=== PATIENT | female | born 1970 | race Caucasian/White ===

== ENCOUNTER 2016-07-24 12:55 | Inpatient (IN) | payer MEDICAID ==
[~2016-07-24] VITALS: Ht 167.6 cm; Wt 81.6 kg
[~2016-07-24 12:55] MED LIST: PRILOSEC40 MG PO
[2016-07-24 13:10] VITALS: BP 124/84
--- NOTE | 2016-07-24 15:44 | NUR ---
PATIENT AMBULATED TO BED 7.
--- NOTE | 2016-07-24 15:47 | NUR ---
PATIENT PRESENTS TO ED WITH DUE TO C/O MIDSTERNAL CHEST PAIN, UNPROVOKED, NON RADIATING---SORENESS TYPE PAIN INTERMITTENT X 1 WEEK HX--VALVULAR REGURGITATION, GERD RX---OMEPRAZOLE .PT VERBALIZED YESTERDAY I FELT LIKE I WAS GOING TO PASS OUT AND WHEN I GOT BACK TO WORK I FEEL A CHILL AND I FEEL MY HEAD FEEL NUMB, SKIN IS PINK/WARM/DRY; AAOX4 WITH EVEN AND STEADY GAIT; LUNGS CLEAR BL; HR EVEN AND REGULAR; PT DENIES ANY FEVER OR COUGH AT THIS TIME; PATIENT STATES PAIN OF 0/10 AT THIS TIME; BUT PT SAYS WHEN SHE HAS PAIN 4/10,PATIENT POSITIONED FOR COMFORT; HOB ELEVATED; BEDRAILS UP X2; BED DOWN. ER MD MADE AWARE OF PT STATUS.
[2016-07-24] MEDS ORDERED: ASPIRIN 81 MG TAB.CHEW PO ONE (15:50)
--- NOTE | 2016-07-24 15:52 | NUR ---
DR. ISRAEL AT BEDSIDE AT THIS TIME
--- NOTE | 2016-07-24 17:30 | NUR ---
Patient appears to be resting comfortably in bed. Vital Signs within normal limits. Respirations even and unlabored. NO ACUTE DISTRESS NOTED AT THIS TIME; WILL CONTINUE TO MONITOR.
--- NOTE | 2016-07-24 18:44 | NUR ---
REPORT GIVEN TO REDD DAVALOS AT THIS TIME; AWAITING ADMIT ORDERS; PT DENIES ANY ACUTE DISTRESS; WILL CONTINUE TO MONITOR.
[2016-07-24] MEDS ORDERED: HYDROcodone/APAP 5/325 MG 1 TAB TAB PO PRN (18:55)
[2016-07-24] MEDS ORDERED: NACL 0.9% 1,000 ML IV ONE (18:55)
[2016-07-24] MEDS ORDERED: MORPHINE SULFATE 2 MG/ML SYR IVP PRN (18:55)
[2016-07-24] MEDS ORDERED: ONDANSETRON 4 MG/2 ML VIAL IVP PRN (18:55)
[2016-07-24] MEDS ORDERED: DOCUSATE SODIUM 100 MG GELCAP PO PRN (18:55)
[2016-07-24] MEDS ORDERED: ACETAMINOPHEN 325 MG TAB PO PRN (18:55)
[2016-07-24] MEDS: METOPROLOL 25 MG TAB PO SCH ×2 (19:05→21:00)
--- NOTE | 2016-07-24 19:14 | NUR ---
Patient will be admitted to care of . Admited to TELEMETRY. Will go to room 119A. Belongings list completed. Report to REDD DAVALOS.
--- NOTE | 2016-07-24 19:15 | NUR ---
ADMITTED A PATIENT FROM ER, TRANSPORTED VIA GURNEY, ACCOMPANIED BY ER NURSE AND FAMILY MEMBERS. PT IS AAOX4, DENIES PAIN AT THIS TIME. ON ROOM AIR, HAS NO S/S OF RESPIRATORY DISTRESS/DISCOMFORT NOTED. ON TELE MONITOR, V/S CHECKED. SKIN CHECKING DONE BY THE CHARGE NURSE, INTACT. IV SITE IS PATENT AND INTACT. ID BAND UPDATED. PROVIDED HEALTH TEACHING, ROOM ORIENTATION DONE, PLAN OF CARE DISCUSSED, VERBALIZED UNDERSTANDING. SAFETY MEASURES INITIATED, CALL LIGHT WITHIN REACH. WILL CONTINUE TO MONITOR.
[2016-07-24 20:00] VITALS: BP 119/74
[2016-07-24] MEDS: ATORVASTATIN 20 MG TAB PO SCH (20:04)
[2016-07-24] MEDS: LISINOPRIL 10 MG TAB PO SCH (20:06)
[2016-07-25] VITALS: BP 100/65
--- NOTE | 2016-07-25 | NUR ---
V/S CHECKED AND STABLE, DENIES PAIN. ON ROOM AIR, HAS NO S/S OF RESPIRATORY DISTRESS/DISCOMFORT NOTED.
--- NOTE | 2016-07-25 02:36 | NUR ---
EYES CLOSED, BREATHING EVEN AND UNLABORED. CALL LIGHT WITHIN REACH.
[2016-07-25 04:00] VITALS: BP 98/66
--- NOTE | 2016-07-25 04:25 | NUR ---
PT SLEEPING BUT AROUSABLE TO NAME. V/S CHECKED, DENIES PAIN. ON ROOM, HAS NO S/S OF RESPIRATORY DISTRESS/DISCOMFORT NOTED.
--- NOTE | 2016-07-25 07:36 | NUR ---
ENDORSED PT TO DAY SHIFT NURSE. PT IN STABLE CONDITION.
--- NOTE | 2016-07-25 07:37 | NUR ---
RECEIVED PT AWAKE AND LYING ON BED, AAOX4 WITH NO S/S OF RESPIRATORY DISTRESS OR DISCOMFORT, WITH IV ACCESS AT RIGHT AC 20G INFUSING FLUIDS WELL. SKIN IS INTACT. NO COMPLAINTS OF PAIN. DISCUSSED PLAN OF CARE, PT VERBALIZED UNDERSTANDING. CALL LIGHT WITHIN REACH, WILL CONTINUE TO MONITOR.
[2016-07-25 08:00] VITALS: BP 97/64
[2016-07-25] MEDS: LISINOPRIL 10 MG TAB PO SCH (09:00)
[2016-07-25] MEDS: METOPROLOL 25 MG TAB PO SCH ×2 (09:00→21:00)
[2016-07-25] MEDS: ECOTRIN 81 MG TABEC PO SCH (09:08)
[2016-07-25] MEDS: PANTOPRAZOLE 40 MG TABEC PO SCH (09:08)
[2016-07-25] MEDS: ATORVASTATIN 20 MG TAB PO SCH (09:08)
--- NOTE | 2016-07-25 09:11 | NUR ---
DUE MEDS GIVEN, PT TOLERATED WELL. HELD BP MEDS DUE TO LOW BP. WILL CONTINUE TO MONITOR.
--- NOTE | 2016-07-25 09:52 | NUR ---
SPOKE WITH [facility]. FAXED INITIAL REVIEW TO [phone] PHONE [phone]
--- NOTE | 2016-07-25 10:00 | NUR ---
PATIENT HAS BEEN SCREENED AND CATEGORIZED MODERATE NUTRITION RISK. PATIENT WILL BE SEEN WITHIN 3-5 DAYS OF ADMISSION. 07/27/16-07/29/[address]
--- NOTE | 2016-07-25 11:20 | NUR ---
PT AWAKE, ALL NEEDS ATTENDED. WILL CONTINUE TO MONITOR.
[2016-07-25 12:00] VITALS: BP 94/57
--- NOTE | 2016-07-25 12:46 | NUR ---
PT ASLEEP AND LYING ON BED, NO SIGNS OF DISTRESS. CALL LIGHT WITHIN REACH, WILL CONTINUE TO MONITOR.
--- NOTE | 2016-07-25 14:15 | NUR ---
PT RESTING COMFORTABLY ON BED USING HER PHONE, ALL NEEDS ATTENDED. NO COMPLAINTS AT THIS TIME.
[2016-07-25 16:00] VITALS: BP 96/71
--- NOTE | 2016-07-25 16:27 | NUR ---
PT AWAKE WATCHING TV, NO S/S OF DISTRESS, WILL CONTINUE TO MONITOR.
--- NOTE | 2016-07-25 18:21 | NUR ---
PT AWAKE WATCHING TV, NO COMPLAINTS AT THIS TIME. WILL CONTINUE TO MONITOR
--- NOTE | 2016-07-25 19:20 | NUR ---
RECEIVED REPORT FROM REDD KLEIN AT BEDSIDE. INITIAL ASSESSMENT COMPLETED, PT AAOX4. PT STABLE. PT HAS SCDS ON. PT AMBULATES. PT HAS IV ON RIGHT AC 20G SL. PT'S SKIN IS INTACT. ORIENTED PT TO ROOM AND SURROUNDINGS AND USE OF CALL LIGHT. EXPLAINED PLAN OF CARE TO PT AND SHE VERBALIZES UNDERSTANDING. CALL LIGHT WITHIN REACH.
--- NOTE | 2016-07-25 19:33 | NUR ---
ENDORSED PT TO REDD CHAVEZ FOR CONTINUITY OF CARE IN STABLE CONDITION
[2016-07-25 20:00] VITALS: BP 99/65
--- NOTE | 2016-07-25 22:02 | NUR ---
2100 LOPRESSOR NOT GIVEN DUE TO LOW BLOOD PRESSURE.
[2016-07-26] VITALS: BP 101/67
--- NOTE | 2016-07-26 00:05 | NUR ---
PT AMBULATED TO THE RESTROOM; PT BACK IN BED NOW. CALL LIGHT WITHIN REACH.
--- NOTE | 2016-07-26 03:40 | NUR ---
PT STATED THAT SHE WAS COLD. PROVIDED PT WITH A WARM BLANKET. WILL CONTINUE TO MONITOR PT.
[2016-07-26 04:00] VITALS: BP 98/65
--- NOTE | 2016-07-26 05:28 | NUR ---
PT STABLE, PT STATES THAT SHE FEELS GOOD AND SHE WANTS TO GO HOME. WILL CONTINUE TO MONITOR PT.
--- NOTE | 2016-07-26 07:00 | NUR ---
ENDORSED PLAN OF CARE TO DAY SHIFT NURSE. PT IN STABLE CONDITION.
--- NOTE | 2016-07-26 07:02 | NUR ---
RECEIVED PT FROM REDD CHAVEZ ASLEEP BUT EASILY AROUSABLE TO NAME, AAOX4 NO S/S OF RESPIRATORY DISTRESS OR DISCOMFORT, WITH IV ACCESS AT RIGHT AC 20G ON SALINE LOCK PATENT AND INTACT. SKIN IS INTACT. DISCUSSED PLAN OF CARE, PT VERBALIZED UNDERSTANDING. CALL LIGHT WITHIN REACH, WILL CONTINUE TO MONITOR
[2016-07-26 08:00] VITALS: BP 108/62
[2016-07-26] MEDS: LISINOPRIL 10 MG TAB PO SCH (08:52)
[2016-07-26] MEDS: METOPROLOL 25 MG TAB PO SCH (08:56)
[2016-07-26] MEDS: ATORVASTATIN 20 MG TAB PO SCH (08:56)
[2016-07-26] MEDS: PANTOPRAZOLE 40 MG TABEC PO SCH (08:56)
[2016-07-26] MEDS: ECOTRIN 81 MG TABEC PO SCH (08:57)
--- NOTE | 2016-07-26 08:58 | NUR ---
DISCUSSEDPLAN OF CARE, PT VERBALIZED UNDERSTANDING. CALL LIGHT WITHIN REACH, WILL CONTINUE TO MONITOR.
--- NOTE | 2016-07-26 10:18 | NUR ---
DUE MEDS GIVEN, PT TOLERATED WELL. CALL LIGHT WITHIN REACH,WILL CONTINUE TO MONITOR
[2016-07-26 12:00] VITALS: BP 101/65
[2016-07-26] MEDS ORDERED: LIPITOR40 MG PO (12:11)
--- NOTE | 2016-07-26 12:13 | NUR ---
PT EATING LUNCH WITH GOOD APPETITE. CALL LIGHT ANJU VIEIRA, WILL CONTINUE TO MONITOR
--- NOTE | 2016-07-26 13:35 | NUR ---
DISCHARGE INSTRUCTIONS AND PRESCRIPTIONS GIVEN, PT VERBALIZED UNDERSTANDING. WORK NOTE GIVEN. ID WRISTBAND, TELE MONITOR AND IV ACCESS REMOVED, CATHETER TIP INTACT. PT LEFT UNIT AMBULATING IN STABLE CONDITION
== END 2016-07-26 13:35 | disposition home or self-care (01) | DRG 243 ==
LOC: MED 12:55 → MTU 19:03
PROVIDERS: ADMIT Family Medicine; ATTEND Family Medicine
DX: K21.9 Gastro-esophageal reflux disease without esophagitis (principal); I07.1 Rheumatic tricuspid insufficiency; I73.9 Peripheral vascular disease, unspecified; I25.10 Atherosclerotic heart disease of native coronary artery without angina pectoris; R00.1 Bradycardia, unspecified; E78.2 Mixed hyperlipidemia; M94.0 Chondrocostal junction syndrome [Tietze]; R31.9 Hematuria, unspecified; Z82.3 Family history of stroke; Z98.51 Tubal ligation status; Z90.49 Acquired absence of other specified parts of digestive tract; Z86.018 Personal history of other benign neoplasm

== ENCOUNTER 2017-02-19 18:26 | Emergency (ER) | payer MEDICAID ==
[~2017-02-19] VITALS: Ht 165.1 cm; Wt 83.2 kg
[~2017-02-19 18:26] MED LIST changes: +ATOR40TA PO; +OMEP40EC1 PO; -PRILOSEC40 MG PO
[2017-02-19 18:47] VITALS: BP 116/86
--- NOTE | 2017-02-19 20:47 | NUR ---
PT TAKEN TO BED 8
--- NOTE | 2017-02-19 20:50 | NUR ---
46/F CAME IN W C/O BURNING DURING VOIDING. PT REPORTS DYSURIA, MALODOROUS,PINK-TINGED URINE AND FREQUENCY WHILE VOIDING X 2 DAYS. C/O 4/10 INTERMITTENT CRAMPING TO LOWER ABDOMEN. PT REPORTS SHE HAD SIMILAR SX BEFORE AND WAS DX WITH UTI. DENIES FEVER/CHILLS, N/V/D. DENIES PMH/RX/OTC
--- NOTE | 2017-02-19 21:50 | NUR ---
Dr. Mesa evaluating patient at bedside.
[2017-02-19] MEDS ORDERED: LEVOFLOXACIN 500 MG TAB PO ONE (22:00)
[2017-02-19] MEDS ORDERED: PHENAZOPYRIDINE 100 MG TAB PO ONE (22:00)
[2017-02-19 22:05] LABS: APPEARANCE,URINE CLEAR (CLEAR); BILIRUBIN,URINE NEGATIVE (NEGATIVE); BLOOD, URINE NEGATIVE (NEGATIVE); COLOR,URINE YELLOW (YELLOW); LEUKOCYTE ESTERASE ,URINE TRACE (NEGATIVE); NITRITE, URINE NEGATIVE (NEGATIVE); UGLUCOSE NEGATIVE (NEGATIVE)
[2017-02-19 22:12] LABS: BARBITURATE, URINE NEG. ng/ml (NEG <=200); BENZODIAZEPINE, URINE NEG. ng/mL (NEG <=200); CANNABINOID, URINE NEG. ng/mL (NEG <=50); COCAINE, URINE NEG. ng/mL (NEG <=300); OPIATE, URINE NEG. ng/mL (NEG <=2000); PHENCYCLIDINE SCREEN,URINE NEG. ng/mL (NEG <=25)
[2017-02-19 22:27] LABS: RBC,URINE 0-5 (RARE) /HPF (0-5)
--- NOTE | 2017-02-19 22:46 | NUR ---
DPatient discharged with v/s stable. Written and verbal after care instructions given and explained. Patient alert, oriented and verbalized understanding of instructions. Ambulatory with steady gait. All questions addressed prior to discharge. ID band removed. Patient advised to follow up with PMD. Rx of LEVAQUIN given. Patient educated on indication of medication including possible reaction and side effects. Opportunity to ask questions provided and answered.
[2017-02-19 22:48] VITALS: BP 125/90
--- NOTE | 2017-02-22 13:35 | NUR ---
ADDENDUM: URINE RESULTS MDRO.REFERRED TO . NO FARTHER TREATMENT ORDERED. PATIENT DISCHARGED WITH APPROPRIATE ANTIBIOTICS AIME
== END 2017-02-19 22:46 | disposition home or self-care (01) ==
LOC: MED 18:26
DX: N39.0 Urinary tract infection, site not specified (principal)
CPT/HCPCS: 80305; 81001; 81025; 87086; 87186; 99284

== ENCOUNTER 2017-03-05 09:54 | Emergency (ER) | payer MEDICAID ==
[~2017-03-05] VITALS: Ht 157.5 cm; Wt 83.0 kg
[2017-03-05 10:10] VITALS: BP 134/82
--- NOTE | 2017-03-05 10:49 | NUR ---
PT AMBULATED TO BED 3.
--- NOTE | 2017-03-05 11:07 | NUR ---
PATIENT PRESENTS TO ED WITH OD PAIN RADIATING TO PARIETAL X 3 DAYS--DENIES INJURY NO N/V/D----FULL CLEAR SPEECH, NO FACIAL ASYMMETRY NOTED AMBULATORY WITH STEADY GAIT . PT STATES . DENIES N/V/D; SKIN IS PINK/WARM/DRY; AAOX4 WITH EVEN AND STEADY GAIT; LUNGS CLEAR BL; HR EVEN AND REGULAR;; PATIENT STATES PAIN OF 4/10 AT THIS TIME; VSS; PATIENT POSITIONED FOR COMFORT; HOB ELEVATED; BEDRAILS UP X2; BED DOWN. ER MD MADE AWARE OF PT STATUS.
[2017-03-05] MEDS ORDERED: IBUPROFEN 600 MG TAB PO ONE (11:40)
[2017-03-05] MEDS ORDERED: ACETAMINOPHEN EXTRA STRENGTH 500 MG TAB PO ONE (11:40)
--- NOTE | 2017-03-05 11:57 | NUR ---
INFLUENZA SWAB COLLECTED
[2017-03-05 12:50] VITALS: BP 129/76
== END 2017-03-05 12:50 | disposition home or self-care (01) ==
LOC: MED 09:54
DX: J11.1 Influenza due to unidentified influenza virus with other respiratory manifestations (principal); Z90.89 Acquired absence of other organs
CPT/HCPCS: 36415; 81002; 81025; 87804; 99284

== ENCOUNTER 2018-07-30 18:44 | Inpatient (IN) | payer BC, MEDICAID ==
[~2018-07-30] VITALS: Ht 157.5 cm; Wt 83.5 kg
[2018-07-30 18:57] VITALS: BP 143/84
--- NOTE | 2018-07-30 19:05 | NUR ---
Jhon ambulated to bed 4. RN evaluating patient at bedside.
--- NOTE | 2018-07-30 19:23 | NUR ---
PT TO ED WITH C/O BLURRY VISION TO BILATERAL EYES THIS AM, LEFT ARM NUMBNESS, AND LIP NUMBESS, ALONG WITH HEADACHE. NO OBVIOUS INJURY NOTED TO EYE. PT DENIES BLURRY VISION AT THIS TIME. PT ALSO REPORTS EAR ITCHING IN BOTH EARS. BILATERAL SENIOR SUPPLIER QUALITY ENGINEER NORMAL. PT ABLE TO SPEAK IN CLEAR SENTENCES WITHOUT DIFFICULTY. PT PLACED INTO BED, PENDING MD VALERIO.
--- NOTE | 2018-07-30 21:11 | NUR ---
DR ESPANA AT BEDSIDE FOR PT EVALUATION
[2018-07-30 22:10] LABS: BASOPHILS % (AUTO) 0.4 % (0.0-2.0); EOSINOPHILS # (AUTO) 0.1 K/uL (0-0.4); HEMATOCRIT 40.3 % (36-48); HEMOGLOBIN 13.5 g/dL (12.0-16.0); LYMPHOCYTES # (AUTO) 2.3 K/uL (2.5-16.5); LYMPHOCYTES % (AUTO) 22.9 % (20.5-51.1); MEAN CORPUSCULAR HEMOGLOBIN 30 pg (27-31); MEAN CORPUSCULAR HGB CONC 34 g/dL (33-37); MEAN CORPUSCULAR VOLUME 88.1 fL (80-94); MONOCYTES # (AUTO) 0.9 K/uL (0.8-1.0); MONOCYTES % (AUTO) 8.7 % (1.7-9.3); NEUTROPHILS # (AUTO) 6.8 K/uL (1.8-7.7); PLATELET COUNT (AUTO) 273 K/uL (140-450); RED BLOOD CELL COUNT(AUTO) 4.57 MIL/uL (4.20-5.40); RED CELL DISTRIBUTION WIDTH 13.8 % (11.6-13.7); WHITE BLOOD COUNT (AUTO) 10.1 K/uL (4.8-10.8)
[2018-07-30 22:44] LABS: APPEARANCE,URINE CLEAR (CLEAR); BILIRUBIN,URINE NEGATIVE (NEGATIVE); BLOOD, URINE 2+ (NEGATIVE); COLOR,URINE YELLOW (YELLOW); LEUKOCYTE ESTERASE ,URINE NEGATIVE (NEGATIVE); NITRITE, URINE NEGATIVE (NEGATIVE); UGLUCOSE NEGATIVE (NEGATIVE)
[2018-07-30 22:53] LABS: ANION GAP 12.9 (8-16); CARBON DIOXIDE 28.6 mmol/L (21-32); CREATININE 0.7 mg/dL (0.6-1.3); POTASSIUM 3.5 mmol/L (3.5-5.1)
[2018-07-30 22:55] LABS: WBC,URINE 0-5 /HPF (0-5)
[2018-07-30 23:00] LABS: ALBUMIN 3.6 g/dL (3.4-5.0); TOTAL BILIRUBIN 0.4 mg/dL (0.0-1.0)
[2018-07-30] MEDS: NACL 0.9% 1,000 ML IV SCH (23:29)
[2018-07-30] MEDS ORDERED: MORPHINE SULFATE 2 MG/ML SYR IVP PRN (23:30)
[2018-07-30] MEDS ORDERED: MECLIZINE 25 MG TAB PO PRN (23:30)
[2018-07-30] MEDS ORDERED: ONDANSETRON 4 MG/2 ML VIAL IM/IVP PRN (23:30)
[2018-07-30] MEDS ORDERED: HYDROcodone/APAP 5/325 MG 1 TAB TAB PO PRN (23:30)
[2018-07-30] MEDS ORDERED: LORazepam 2 MG/ML VIAL IM/IVP PRN (23:30)
[2018-07-30] MEDS ORDERED: DOCUSATE SODIUM 100 MG GELCAP PO PRN (23:30)
[2018-07-30] MEDS ORDERED: ZOLPIDEM 5 MG TAB PO PRN (23:30)
--- NOTE | 2018-07-30 23:30 | NUR ---
PT INFORMED OF PLAN OF CARE, NO QUESTIONS OR CONCERNS.
[2018-07-31] VITALS: BP 127/81
--- NOTE | 2018-07-31 | NUR ---
RECEIVED PT FROM ER NURSE. PT AMBULATE TO BED. FAMILY AT BEDSIDE. CC NUMBNESS, VISION PROBLEMS, DX TIA. IV SITE ON LAC 20G. HANG NS @ 60MLS/HR, PATENT AND INTACT. NO S/S SOB OR RESPIRATORY DISTRESS NOTED. DENIED PAIN. PT IN NPO STATUS. SKIN INTACT, WARM AND DRY. ORIENT ROOM TO PT. BED IN LOW POSITION. CALL LIGHT WITHIN REACH. WILL CONTINUE TO MONITOR.
--- NOTE | 2018-07-31 00:09 | NUR ---
Patient will be admitted to care of DR CARUSO. Admited to TELE. Will go to room 125-A. Belongings list completed. Report to REDD GARIBAY.
[2018-07-31 00:22] LABS: PROTHROMBIN TIME 10.4 secs (10.8-13.4)
[2018-07-31 00:35] LABS: MAGNESIUM 2.1 mg/dL (1.8-2.4); PHOSPHORUS 3.9 mg/dL (2.5-4.9); THYROID STIMULATING HORMONE 2.54 uIU/mL (0.34-3.74)
[2018-07-31 01:05] LABS: BARBITURATE, URINE NEG. ng/ml (NEG <=200); BENZODIAZEPINE, URINE NEG. ng/mL (NEG <=200); CANNABINOID, URINE NEG. ng/mL (NEG <=50); COCAINE, URINE NEG. ng/mL (NEG <=300); OPIATE, URINE NEG. ng/mL (NEG <=2000); PHENCYCLIDINE SCREEN,URINE NEG. ng/mL (NEG <=25)
--- NOTE | 2018-07-31 02:20 | NUR ---
PT SLEEPING WITHOUT ANY DISCOMFORT. NO S/S SOB OR ANY RESPIRATORY DISTRESS. WILL CONTINUE TO MONITOR.
--- NOTE | 2018-07-31 04:40 | NUR ---
PT SLEEPING COMFORTABLY. PT IN STABLE CONDITION.
--- NOTE | 2018-07-31 05:30 | NUR ---
ROUND DONE. PT SLEEPING WITHOUT ANY DISCOMFORT.
[2018-07-31] MEDS ORDERED: PANTOPRAZOLE 40 MG TABEC PO PRN (06:30)
--- NOTE | 2018-07-31 07:17 | NUR ---
ENDORSED PT TO DAY SHIFT NURSE. PT IN STABLE CONDITION.
--- NOTE | 2018-07-31 07:18 | NUR ---
Received bedside report from pm nurse Scotty. Pt asleep in bed, respirations even & nonlabored, FLACC 0. Left AC IV intact with ongoing NS @ 60ml/hr. Call light within reach.
[2018-07-31] MEDS: ACETAMINOPHEN 325 MG TAB PO PRN ×3 (07:50→21:15)
--- NOTE | 2018-07-31 07:50 | NUR ---
Pt sitting upright in bed. Gag reflex checked with tongue depressor with positive result. No lingual deviation noted. Pt able to swallow acetaminophen tab with water without difficulty. Addendum: 07/31/18 at 1000 by Enma Diaz RN Addendum: PT c/o bilat outer ear pain. 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 Inspected both ears, dry skin noted to both hears, no redness or lesions.
[2018-07-31 08:00] VITALS: BP 105/66
--- NOTE | 2018-07-31 08:15 | NUR ---
Dr. Torres notified of c/o bilat ear pain with dryness & itchiness. Per physician, she will see pt.
--- NOTE | 2018-07-31 08:39 | NUR ---
PATIENT HAS BEEN SCREENED AND CATEGORIZED MODERATE NUTRITION RISK. PATIENT WILL BE SEEN WITHIN 3-5 DAYS OF ADMISSION. 08/02/18-08/04/[address]
--- NOTE | 2018-07-31 09:00 | NUR ---
Pt ambulating in hallway with physical therapist. Pt with steady gait. No signs of distress, FLACC 0.
[2018-07-31] MEDS: ATORVASTATIN 20 MG TAB PO SCH (09:03)
[2018-07-31 09:16] LABS: BASOPHILS % (AUTO) 0.2 % (0.0-2.0); EOSINOPHILS % (AUTO) 0.4 % (0.0-4.0); HEMOGLOBIN 13.3 g/dL (12.0-16.0); LYMPHOCYTES # (AUTO) 1.7 K/uL (2.5-16.5); LYMPHOCYTES % (AUTO) 18.3 % (20.5-51.1); MEAN CORPUSCULAR HEMOGLOBIN 30 pg (27-31); MEAN CORPUSCULAR HGB CONC 34 g/dL (33-37); MEAN CORPUSCULAR VOLUME 87.6 fL (80-94); MONOCYTES % (AUTO) 10.6 % (1.7-9.3); NEUTROPHILS # (AUTO) 6.7 K/uL (1.8-7.7); NEUTROPHILS % (AUTO) 70.5 % (42.2-75.2); PLATELET COUNT (AUTO) 272 K/uL (140-450); RED BLOOD CELL COUNT(AUTO) 4.45 MIL/uL (4.20-5.40); RED CELL DISTRIBUTION WIDTH 13.8 % (11.6-13.7); WHITE BLOOD COUNT (AUTO) 9.4 K/uL (4.8-10.8)
[2018-07-31 09:40] LABS: PHOSPHORUS 3.3 mg/dL (2.5-4.9)
[2018-07-31 10:05] LABS: ANION GAP 13.9 (8-16); CREATININE 0.7 mg/dL (0.6-1.3); POTASSIUM 3.9 mmol/L (3.5-5.1)
[2018-07-31 12:00] VITALS: BP 118/81
--- NOTE | 2018-07-31 14:08 | NUR ---
Pt asleep in bed, respirations even & nonlabored, FLACC 0. Left AC IV intact with ongoing NS @ 60ml/hr. Call light within reach. Family sitting at bedside.
--- NOTE | 2018-07-31 14:30 | NUR ---
Dr. Torres at bedside to asses pt's ears. Per physician, she will input orders for otic drops. Pt agree with plan of care.
[2018-07-31 16:00] VITALS: BP 124/79
[2018-07-31] MEDS: NACL 0.9% 1,000 ML IV SCH (16:15)
[2018-07-31] MEDS: CARBAMIDE PEROXIDE 6.5% OT 15 ML BTL OT SCH ×2 (17:19→20:36)
--- NOTE | 2018-07-31 18:10 | NUR ---
Pt sitting up in bed, eating dinner. No c/o pain/discomfort, respirations even & nonlabored. Call light within reach.
--- NOTE | 2018-07-31 19:05 | NUR ---
Bedside report given to pm nurse Abby. Pt in bed, awake, no c/o discomfort. Family at bedside. Left AC IV intact with ongoing NS @ 60ml/hr. Call light within reach.
--- NOTE | 2018-07-31 19:10 | NUR ---
RECEIVED FROM AM RN IN BED SITTING UP IN BED. WITH VISITORS. NO COMPLAINTS DONE AT THIS TIME. DENIES PAIN AT THIS TIME. ENCOURAGED TO CALL FOR ANY HELP OR PAIN SHE MIGHT HAVE. ORIENTED TO CALL LIGHT USE. A/O X 4. ROM X 4. TELEMETRY MONITORING. IVF SITE INTACT AND NO INFILTRATION.
[2018-07-31 20:12] VITALS: BP 118/70
--- NOTE | 2018-07-31 21:17 | NUR ---
PT. WENT TO RESTROOM. STANDBY ASSIST. NOTED ABLE TO STAND UP STRAIGHT AND WALK WELL TO RESTROOM. REQUESTED TO HAVE TYLENOL P.O. FOR LEFT EAR THROBBING IN PAIN. ADMINISTERED ORDERED AND PER PT. REQUEST. CALL LIGHT WITH IN REACH. A/O X 4. ROM X 4.
[2018-08-01] VITALS: BP 121/79
--- NOTE | 2018-08-01 01:57 | NUR ---
CHECKED PT. SLEEPING WELL. NO RESTLESSNESS. BED ALARM ON. CALL LIGHT WITH IN REACH.
--- NOTE | 2018-08-01 03:00 | NUR ---
SLEEPING WELL. NO RESTLESSNESS. IVF SITE INTACT AND NO INFILTRATION. TELEMETRY MONITORING.
--- NOTE | 2018-08-01 03:59 | NUR ---
SLEEPING WELL THIS SHIFT. WOKE UP EASILY WHEN AWAKENED FOR VITAL SIGN CHECK. NO COMPLAINTS DONE. GOOD AFFECT. WENT BACK TO SLEEP AFTER.
[2018-08-01 04:10] VITALS: BP 143/86
[2018-08-01 06:26] LABS: ANION GAP 12.2 (8-16); BASOPHILS % (AUTO) 0.3 % (0.0-2.0); CARBON DIOXIDE 25.6 mmol/L (21-32); CREATININE 0.6 mg/dL (0.6-1.3); EOSINOPHILS # (AUTO) 0.2 K/uL (0-0.4); EOSINOPHILS % (AUTO) 1.7 % (0.0-4.0); HEMATOCRIT 38.9 % (36-48); HEMOGLOBIN 13.1 g/dL (12.0-16.0); LYMPHOCYTES # (AUTO) 1.8 K/uL (2.5-16.5); LYMPHOCYTES % (AUTO) 17.2 % (20.5-51.1); MEAN CORPUSCULAR HEMOGLOBIN 30 pg (27-31); MEAN CORPUSCULAR HGB CONC 34 g/dL (33-37); MEAN CORPUSCULAR VOLUME 88.2 fL (80-94); MONOCYTES # (AUTO) 1.1 K/uL (0.8-1.0); MONOCYTES % (AUTO) 10.4 % (1.7-9.3); NEUTROPHILS # (AUTO) 7.3 K/uL (1.8-7.7); NEUTROPHILS % (AUTO) 70.4 % (42.2-75.2); PLATELET COUNT (AUTO) 261 K/uL (140-450); POTASSIUM 3.8 mmol/L (3.5-5.1); RED BLOOD CELL COUNT(AUTO) 4.42 MIL/uL (4.20-5.40); RED CELL DISTRIBUTION WIDTH 13.8 % (11.6-13.7); WHITE BLOOD COUNT (AUTO) 10.3 K/uL (4.8-10.8)
--- NOTE | 2018-08-01 06:31 | NUR ---
PT. SLEEPING. AROUSABLE WHEN TOUCHED OR CALLED BY NAME. NO CHEST PAIN OR NUMBNESS COMPLAINT THIS SHIFT. TLEMETRY MONITORING. A/O X 4. TELEMETRY MONITORING. CALL LIGHT WITH IN REACH.
[2018-08-01 06:36] LABS: PHOSPHORUS 2.8 mg/dL (2.5-4.9)
--- NOTE | 2018-08-01 07:05 | NUR ---
RECEIVED BEDSIDE REPORT FROM FOOT GATHERER NURSE. PATIENT IS AWAKE, ALERT AND ORIENTEDX4. NO SIGNS OF DISTRESS ON RA. SKIN IS INTACT. IV ON L AC 20G INFUSING NS AT 60. CLEAN, DRY AND INTACT. TELE MONITOR IN PLACE. PATIENT IS AMBULATORY. CONTINENT. NO COMPLAINTS OF NUMBNESS. COMPLAINTS OF EARS STILL ACHING. DR RIVERA IS AWARE, SHE SAID THAT IF IT GETS WORSE OR IF THERE IS DRAINAGE THEN TO COME BACK TO THE ER AND GET ANTIBIOTICS BUT FROM HER STAND POINT DR BERUMEN SEES NO SIGNS OF INFECTION AT THIS TIME. PATIENT VERBALIZED UNDERSTANDING. ABLE TO MAKE NEEDS KNOWN. WILL CONTINUE TO MONITOR THE PATIENT.
[2018-08-01 08:00] VITALS: BP 131/95
[2018-08-01 08:08] LABS: T4 (THYROXINE) 7.3 ug/dL (4.5-12.0)
--- NOTE | 2018-08-01 08:20 | NUR ---
EDUCATED PATIENT ON DISEASE PROCESS, ABN S/SX, WHEN TO GO TO THE ER, EDUCATED ON MEDS, NO PRESCRIPTIONS JUST OTC TYLENOL. DR BERUMEN SAID NO NEED FOR CHOLESTEROL MEDS BECAUSE HER CHOLESTEROL LEVELS ARE GOOD, EDUCATED ON FOLLOW UP W PCP IN A WEEK, PATIENT REQUESTED IMAGING, DR BERUMEN SAID OK TO GIVE THEM, ALSO GAVE HER AN EXCUSE NOTE . PATIENT VERBALIZED UNDERSTANDING AND SIGNED ALL PAPERWORK. IV REMOVED, TIP INTACT. TELE MONITOR REMOVED, ID BANDS REMOVED. PATIENT IS CHANGING AND WILL CALL WHEN READY TO LEAVE.
[2018-08-01] MEDS: NACL 0.9% 1,000 ML IV SCH (08:49)
[2018-08-01] MEDS: CARBAMIDE PEROXIDE 6.5% OT 15 ML BTL OT SCH (09:01)
[2018-08-01] MEDS: ATORVASTATIN 20 MG TAB PO SCH (09:01)
--- NOTE | 2018-08-01 09:07 | NUR ---
ADMINISTERED MEDS. EDUCATED ON SIDE EFFECTS. PATIENT VERBALIZED UNDERSTANDING. TOLERATED WELL. WILL CONTINUE TO MONITOR THE PATIENT. PATIENT STATES HER KEYS ARE WITH HER DAUGHTER AND SHE WILL LEAVE IN ABOUT AN HOUR
--- NOTE | 2018-08-01 10:50 | NUR ---
PATIENT STATES DAUGHTER SHOULD BE HERE SOON. NO SIGNS OF DISTRESS. WILL CONTINUE TO MONITOR THE PATIENT
--- NOTE | 2018-08-01 11:05 | NUR ---
PATIENTS DAUGHTER HERE TO PICK HER UP. PATIENT LEFT IN STABLE CONDITION. PATIENT NOT A CANDIDATE FOR PNA, FLU VACCINE NOT IN SEASON. PATIENT ALSO REFUSED.
== END 2018-08-01 11:05 | disposition home or self-care (01) | DRG 74 ==
LOC: MED 18:44 → MMU 23:29
PROVIDERS: ADMIT General Practice; ATTEND General Practice
DX: G90.9 Disorder of the autonomic nervous system, unspecified (principal); K21.9 Gastro-esophageal reflux disease without esophagitis; I10 Essential (primary) hypertension; E78.5 Hyperlipidemia, unspecified; Z90.49 Acquired absence of other specified parts of digestive tract; Z98.51 Tubal ligation status; E66.9 Obesity, unspecified; Z68.33 Body mass index [BMI] 33.0-33.9, adult; R31.9 Hematuria, unspecified; N20.0 Calculus of kidney
CPT/HCPCS: 36415; 70450; 71045; 76770; 80048; 80053; 80305; 81001; 82140; 82150; 83036; 83690; 83735; 83880; 84100; 84134; 84436; 84443; 84484; 85025; 85610; 85730; 87081; 93880; 97161-GP; 99285; G0378; J1644; J7030; Q0092